=== PATIENT | female | born 1985 | race Caucasian/White ===

== ENCOUNTER 2021-08-08 07:47 | Day surgery (SDCO) | payer OTHER ==
[~2021-08-08] VITALS: Ht 160 cm; Wt 84.4 kg
[~2021-08-08 07:47] MED LIST: IMITREX100 MG PO; NORCO 5-325 TA1 EACH PO; TOPAMAX25 MG PO; ZOFRAN8 MG PO
[2021-08-08 08:11] LABS: HCG (URINE) SCREEN NEGATIVE (NEGATIVE)
[2021-08-08 09:16] LABS: HCT 38.7 % (37.0-47.0); HGB 12.5 g/dl (12.5-16.0); MCH 29.3 pg (25.0-31.0); MCHC 32.3 g/dL (32.0-36.0); MCV 90.8 fL (78.0-100.0); RBC 4.26 M/uL (4.20-5.40); RDW 12.8 % (11.5-14.0)
[2021-08-09 07:09] LABS: BASOPHIL 0.2 % (0-2); EOSINOPHIL 0.2 % (0-5); HGB 10.2 g/dl (12.5-16.0); MCH 29.1 pg (25.0-31.0); MCHC 31.9 g/dL (32.0-36.0); MCV 91.2 fL (78.0-100.0); MONOCYTE 7.4 % (0-12); NEUTROPHIL 72.9 % (41-80); NRBC 0; PLT 236 K/uL (150-400); RBC 3.51 M/uL (4.20-5.40); RDW 12.9 % (11.5-14.0); WBC 12.1 K/uL (4.0-10.5)
[2021-08-09] MEDS ORDERED: COLACE100 MG PO (11:22)
[2021-08-09] MEDS ORDERED: PERCOCET 5-3251 EACH PO (11:22)
[2021-08-09] MEDS ORDERED: IBUPROFEN600 MG PO (11:22)
== END 2021-08-09 13:02 | disposition home or self-care (01) ==
LOC: FAS 07:47 → FMS 12:27
PROVIDERS: ADMIT Obstetrics & Gynecology
DX: N93.9 Abnormal uterine and vaginal bleeding, unspecified (principal); N83.201 Unspecified ovarian cyst, right side; D64.9 Anemia, unspecified; F41.9 Anxiety disorder, unspecified; G43.709 Chronic migraine without aura, not intractable, without status migrainosus; F32.A Depression, unspecified; Z98.51 Tubal ligation status; Z88.0 Allergy status to penicillin; Z79.899 Other long term (current) drug therapy; Z90.49 Acquired absence of other specified parts of digestive tract; Z72.89 Other problems related to lifestyle; Z80.3 Family history of malignant neoplasm of breast; Z80.0 Family history of malignant neoplasm of digestive organs
CPT/HCPCS: 36415; 84703; 85025; 86850; 86900; 86901; 93005; G0378; J1100; J1170; J1580; J1885; J2250; J2405; J2704; J2710; J3010; J7120; J7121

== ENCOUNTER 2021-08-23 09:34 | Emergency (ER) | payer OTHER ==
[~2021-08-23 09:34] MED LIST changes: +COLACE100 MG PO; +IBUPROFEN600 MG PO; +PERCOCET 5-3251 EACH PO
[2021-08-23 10:33] LABS: BASOPHIL 0.9 % (0-2); EOSINOPHIL 6.3 % (0-5); HCT 39.9 % (37.0-47.0); HGB 12.8 g/dl (12.5-16.0); LYMPHOCYTE 18.3 % (15-48); MCHC 32.1 g/dL (32.0-36.0); MCV 90.5 fL (78.0-100.0); MONOCYTE 5.3 % (0-12); MPV 8.5 fL (6.0-9.5); NEUTROPHIL 68.8 % (41-80); NRBC 0; PLT 415 K/uL (150-400); RBC 4.41 M/uL (4.20-5.40); RDW 12.3 % (11.5-14.0); WBC 9.9 K/uL (4.0-10.5)
[2021-08-23 10:41] LABS: BILIRUBIN NEGATIVE (NEGATIVE); BLOOD 1+ Ery/uL (NEGATIVE); CLARITY CLEAR (CLEAR); COLOR YELLOW (YELLOW); GLUCOSE (U) NORMAL (NORMAL); LEUKOCYTES NEGATIVE Leu/uL (NEGATIVE); NITRITE NEGATIVE (NEGATIVE); PROTEIN NEGATIVE (NEGATIVE); SPECIFIC GRAVITY 1.025 (1.001-1.030); UROBILINOGEN 0.2 mg/dL (0.2-1.0); pH 6.5 (5.0-9.0)
[2021-08-23 10:45] LABS: BACTERIA 3+; MUCOUS LARGE
[2021-08-23 11:12] LABS: ALBUMIN 3.5 g/dL (3.4-5.0); BILIRUBIN - TOTAL 0.4 mg/dL (0.2-1.0); BUN/CREAT RATIO (CALC) 10.8 RATIO; C-REACTIVE PROTEIN 1.9 mg/dL (<=0.90); CREATININE 0.74 mg/dL (0.51-0.95); GLOBULIN (CALCULATION) 4.7 g/dL; MAGNESIUM 2.3 mg/dL (1.8-2.4); TOTAL PROTEIN 8.2 g/dL (6.4-8.2)
[2021-08-23] MEDS ORDERED: BACTRIM 400-801 EACH PO (15:37)
[2021-08-23] MEDS ORDERED: ONDANSETRON ODT4 MG PO (15:37)
[2021-08-23] MEDS ORDERED: NORCO 5-325 TA1 EACH PO (15:37)
== END 2021-08-23 16:24 | disposition home or self-care (01) ==
LOC: FER 09:34
PROVIDERS: Emergency Medicine
DX: G89.18 Other acute postprocedural pain (principal); R11.2 Nausea with vomiting, unspecified; Z88.0 Allergy status to penicillin
CPT/HCPCS: 36415; 80053; 81001; 82728; 83615; 83690; 83735; 85025; 86140; J0696; J1170; J2405; J7030; Q9967